=== PATIENT | female | born 1985 | race Caucasian/White ===

== ENCOUNTER 2017-09-03 13:14 | Emergency (ER) | payer SELFPAY | END 2017-09-03 16:16 | disposition home or self-care (01) | LOC: M ED 13:14 | DX: O99.89 Other specified diseases and conditions complicating pregnancy, childbirth and the puerperium (principal); S30.0XXA Contusion of lower back and pelvis, initial encounter; S80.11XA Contusion of right lower leg, initial encounter; V80.42XA Occupant of animal-drawn vehicle injured in collision with car, pick-up truck, van, heavy transport vehicle or bus, initial encounter; Y92.410 Unspecified street and highway as the place of occurrence of the external cause; Y93.9 Activity, unspecified; Z3A.08 8 weeks gestation of pregnancy; Z79.899 Other long term (current) drug therapy | CPT/HCPCS: 99284 ==

== ENCOUNTER 2018-04-09 23:06 | Outpatient (CLI) | payer SELFPAY | END 2018-04-10 00:20 | disposition home or self-care (01) | LOC: M LDO 23:06 | DX: O36.8130 Decreased fetal movements, third trimester, not applicable or unspecified (principal); Z3A.40 40 weeks gestation of pregnancy | CPT/HCPCS: 59025 ==

== ENCOUNTER 2018-04-15 00:17 | Inpatient (IN) | payer SELFPAY ==
[2018-04-15] MEDS: PENICILLIN G POTASSIUM IV 5 MU in D5W MINI-BAG PLUS 100 ML IV (01:12)
[2018-04-15 01:22] LABS: BASO % 0.3 % (0.0-1.0); EOS # 0.2 10^3/uL (0.0-0.50); HEMATOCRIT 37.1 % (36.0-47.0); HEMOGLOBIN 12.3 g/dl (12.0-15.5); IMMATURE GRANULOCYTE % 0.5 % (0-3.0); LYMPH # 1.6 10^3/uL (1.5-4.5); LYMPH % 17.1 % (24.0-44.0); MEAN CORPUSCULAR HEMOGLOBIN 29.4 pg (27.0-33.0); MEAN CORPUSCULAR HGB CONC 33.2 g/dl (32.0-36.5); MEAN CORPUSCULAR VOLUME 88.8 fl (80.0-96.0); MONO # 0.7 10^3/uL (0.0-0.8); MONO % 7.7 % (0.0-5.0); NEUTROPHILS # 6.8 10^3/uL (1.8-7.7); NEUTROPHILS % 72.4 % (36.0-66.0); PLATELET COUNT, AUTOMATED 220 10^3/uL (150-450); RED BLOOD COUNT 4.18 10^6/uL (4.00-5.40); RED CELL DISTRIBUTION WIDTH 13.2 % (11.5-14.5); WHITE BLOOD COUNT 9.4 10^3/uL (4.0-10.0)
[2018-04-15 02:03] LABS: CONTROL LINE INT CTR LINE PRESENT; HIV SCRN NEGATIVE (NEGATIVE); HIV SCRN1 NEGATIVE (NEGATIVE)
[2018-04-15] MEDS: PENICILLIN G POTASSIUM IV 2.5 MU in APPROPRIATE DILUENT 1 EA IV ×4 (04:45→17:19)
[2018-04-15 07:28] LABS: HBsAg Prenatal NEGATIVE (NEGATIVE)
[2018-04-15] MEDS: OXYTOCIN DRIP 30 UNITS in APPROPRIATE DILUENT 1 EA IV ×2 (09:08→23:59)
[2018-04-15 11:34] LABS: RUBELLA IgG QUALITATIVE IMMUNE (IMMUNE)
[2018-04-15 12:02] LABS: HEPATITIS C VIRUS ABY INDEX 0.1 INDEX (<0.8)
[2018-04-15 12:03] LABS: HIV 1&2 SCREEN CENTAUR NEGATIVE (NEGATIVE)
[2018-04-15] MEDS: LR 1,000 ML IV (13:31)
[2018-04-15] MEDS: PROMETHAZINE INJ 25 MG/ML VIAL (J2550) IV ×2 (14:00→19:25)
[2018-04-15] MEDS: BUTORPHANOL 2 MG/ML INJ (J0595) IV ×2 (14:00→19:25)
[2018-04-15] MEDS ORDERED: RHOGAM 300 MCG (1500 IU) INJ (J2790) IM (22:30)
[2018-04-15] MEDS ORDERED: METHYLERGONOVINE MALEATE 0.2 MG/ML VIAL (J2210) IM (22:30)
[2018-04-15] MEDS ORDERED: MEASLES,MUMPS,RUBELLA VACCINE INJ (MMR-II) (90707) SC (22:30)
[2018-04-15] MEDS ORDERED: ANUSOL HC CREAM 30GM TOP (22:30)
[2018-04-15] MEDS ORDERED: DIBUCAINE 1% OINTMENT 30GM TOP (22:30)
[2018-04-15] MEDS ORDERED: ACETAMINOPHEN 500 MG TAB PO (22:30)
[2018-04-15] MEDS ORDERED: MOM 30ML SUSPENSION UDC PO (22:30)
[2018-04-15] MEDS: CARBOPROST TROMETHAMINE 250 MCG/ML AMP IM (22:38)
[2018-04-15] MEDS ORDERED: METHYLERGONOVINE MALEATE 0.2 MG TAB PO (23:00)
[2018-04-15] MEDS ORDERED: LIDOCAINE 1% MDV 20ML VIAL As Ordered (23:18)
[2018-04-15] MEDS: ceFAZolin 2 GM/D5W 50 ML IV BAG (J0690 PER 500MG) As Ordered (23:38)
[2018-04-15 23:46] LABS: iSTAT CA++ 4.7 MG/DL (4.5-5.3)
[2018-04-15] MEDS ORDERED: SUCCINYLCHOLINE 100 MG/5 ML SYRINGE (J0330) As Ordered (23:58)
[2018-04-15] MEDS ORDERED: ONDANSETRON 4MG/2ML VIAL (J2405) As Ordered (23:58)
[2018-04-15] MEDS ORDERED: ROCURONIUM BROMIDE 50 MG/5 ML VIAL As Ordered (23:58)
[2018-04-15] MEDS ORDERED: KETOROLAC 60 MG/2 ML VIAL (J1885) As Ordered (23:58)
[2018-04-15] MEDS ORDERED: GLYCOPYRROLATE INJ 0.2 MG/ML 2 ML VIAL As Ordered (23:58)
[2018-04-15] MEDS ORDERED: MIDAZOLAM INJ 2 MG/2 ML VIAL (J2250) As Ordered (23:58)
[2018-04-15] MEDS ORDERED: PROPOFOL 200 MG/20 ML VIAL As Ordered (23:58)
[2018-04-15] MEDS ORDERED: NEOSTIGMINE 10 MG/10 ML VIAL (J2710) As Ordered (23:58)
[2018-04-15] MEDS ORDERED: dexameTHASONE 4 MG/ML 1ML VIAL (J1100) As Ordered (23:58)
[2018-04-15] MEDS ORDERED: fentaNYL 250 MCG/5 ML INJECTION (J3010) As Ordered (23:58)
[2018-04-16] MEDS: miSOPROStol 200 MCG TAB (S0191) PR
[2018-04-16] MEDS: OXYTOCIN DRIP 30 UNITS in APPROPRIATE DILUENT 1 EA IV
[2018-04-16] MEDS: LIDOCAINE 1% MDV 20ML VIAL INFIL
[2018-04-16] MEDS: CARBOPROST TROMETHAMINE 250 MCG/ML AMP IM
[2018-04-16] MEDS: METHYLERGONOVINE MALEATE 0.2 MG/ML VIAL (J2210) IM (00:01)
[2018-04-16] MEDS ORDERED: LR 1,000 ML IV (00:45)
[2018-04-16] MEDS ORDERED: fentaNYL 100 MCG/2 ML INJECTION (J3010) IV (00:45)
[2018-04-16] MEDS ORDERED: PERCOCET 5MG/325MG TAB As Ordered (00:57)
[2018-04-16] MEDS ORDERED: LOPERAMIDE 2 MG CAP PO (01:00)
[2018-04-16] MEDS: PERCOCET 5MG/325MG TAB PO ×5 (01:02→23:03)
[2018-04-16] MEDS ORDERED: ONDANSETRON 4MG/2ML VIAL (J2405) As Ordered (01:03)
[2018-04-16] MEDS: ONDANSETRON 4MG/2ML VIAL (J2405) IV (01:04)
[2018-04-16] MEDS: AMPICILLIN SOD/SULBACTAM SOD 3 GM in D5W MINI-BAG PLUS 100 ML IV ×4 (01:57→20:00)
[2018-04-16] MEDS: IBUPROFEN 800 MG TAB PO ×2 (01:58→19:46)
[2018-04-16] MEDS ORDERED: METHYLERGONOVINE MALEATE 0.2 MG TAB PO (03:00)
[2018-04-16] MEDS: LR 1,000 ML IV ×2 (08:27→16:03)
[2018-04-16] MEDS: PRENATAL VITAMINS CHEWABLE TABLET PO (08:28)
[2018-04-16 10:14] LABS: HEMATOCRIT 24.9 % (36.0-47.0); MEAN CORPUSCULAR HEMOGLOBIN 30.1 pg (27.0-33.0); MEAN CORPUSCULAR HGB CONC 34.1 g/dl (32.0-36.5); MEAN CORPUSCULAR VOLUME 88.3 fl (80.0-96.0); PLATELET COUNT, AUTOMATED 202 10^3/uL (150-450); RED BLOOD COUNT 2.82 10^6/uL (4.00-5.40); RED CELL DISTRIBUTION WIDTH 13.2 % (11.5-14.5); WHITE BLOOD COUNT 12.2 10^3/uL (4.0-10.0)
[2018-04-16 10:23] LABS: HEMOGLOBIN 8.5 g/dl (12.0-15.5)
[2018-04-16] MEDS: DOCUSATE SODIUM 100 MG CAP PO (19:47)
[2018-04-17] MEDS: AMPICILLIN SOD/SULBACTAM SOD 3 GM in D5W MINI-BAG PLUS 100 ML IV ×2 (02:00→02:30)
[2018-04-17] MEDS: IBUPROFEN 800 MG TAB PO ×2 (06:00→14:18)
[2018-04-17] MEDS: PRENATAL VITAMINS CHEWABLE TABLET PO (09:00)
== END 2018-04-17 15:15 | disposition home or self-care (01) | DRG 560 ==
LOC: M LDO 00:17 → M LDI 00:49 → M OBS 23:40
PROC: 10E0XZZ Delivery of Products of Conception, External Approach (ICD-10-PCS; principal; 2018-04-15 23:21)
PROC: 0HQ9XZZ Repair Perineum Skin, External Approach (ICD-10-PCS; 2018-04-15 23:21)
DX: O48.0 Post-term pregnancy (principal); O34.211 Maternal care for low transverse scar from previous cesarean delivery; Z37.0 Single live birth; Z3A.40 40 weeks gestation of pregnancy; O70.0 First degree perineal laceration during delivery